=== PATIENT | male | born 1940 | race Caucasian/White ===

== ENCOUNTER → 2019-03-10 | Outpatient (CLI) | payer MEDICARE ==
[~2019-03-10] MED LIST: DOXYCYCLINE 10100 M1 PO; LORTAB 5 MG/5001 TA1 PO; NEXIUM
== END ==
LOC: M.RAD 16:39
DX: J84.10 Pulmonary fibrosis, unspecified (principal); E78.5 Hyperlipidemia, unspecified

== ENCOUNTER → 2020-05-04 | Outpatient (CLI) | payer MEDICARE | LOC: M.RAD 10:27 | PROVIDERS: ATTEND Internal Medicine | DX: J43.1 Panlobular emphysema (principal); R05 Cough ==

== ENCOUNTER → 2020-05-18 | Outpatient (CLI) | payer MEDICARE ==
--- NOTE | 2020-06-11 18:15 | PF ---
[address] [address] PULMONARY FUNCTION REPORT Name: IZAIAH RIOS Room: [facility]#: [id number] Admission: 05/18/20 Attend Phys: Harsha King MD Discharge: Date of : 38 Report #: [id number] THIS REPORT FOR: //name// CC: Harsha Buenrostro [facility] DATE OF SERVICE: 05/18/2020 PULMONARY FUNCTION TEST The FEV1/FVC ratio is decreased to 59% with a forced vital capacity normal at 92%. The FEV1 is mildly decreased to 77%. The [id number] is decreased to 38%. After the administration of a bronchodilator, there is no significant increase in any of these values. The patient's post-bronchodilator FEV1 is noted to be 2.06 liters. The total lung capacity is normal at 91% with residual volume normal at 98%. The DLCO as adjusted for hemoglobin; however, is severely decreased to 33%. The flow volume loop is concave upwards. IMPRESSION: 1. Moderate obstruction without evidence of reversibility. 2. Normal lung volumes. 3. Severe reduction in DLCO to 30% as adjusted for hemoglobin. <ELECTRONICALLY SIGNED> By: Harsha King MD 06/11/20 [id number] King MD /nt
== END ==
LOC: M.PUL 12:50
PROVIDERS: ATTEND Internal Medicine Critical Care Medicine
DX: J45.40 Moderate persistent asthma, uncomplicated (principal); R94.2 Abnormal results of pulmonary function studies; R05 Cough

== ENCOUNTER → 2020-08-07 | Outpatient (CLI) | payer MEDICARE | LOC: M.CT 13:11 | PROVIDERS: ATTEND Internal Medicine Critical Care Medicine | DX: J84.10 Pulmonary fibrosis, unspecified (principal); R94.2 Abnormal results of pulmonary function studies ==